=== PATIENT | female | born 1950 | race Caucasian/White ===

== ENCOUNTER 2020-08-26 22:58 | Inpatient (IN) | payer MEDICARE, OTHER ==
[~2020-08-26] VITALS: Ht 162.6 cm; Wt 85.1 kg
[2020-08-26] MEDS ORDERED: METOPROLOL SUC200 MG PO (23:23)
[2020-08-26] MEDS ORDERED: ATORVASTATIN CA20 MG PO (23:23)
[2020-08-26] MEDS ORDERED: HYDROCHLOROTHIA25 MG PO (23:23)
[2020-08-26] MEDS ORDERED: METFORMIN HCL1000 MG PO (23:23)
[2020-08-26] MEDS ORDERED: LISINOPRIL40 MG PO (23:23)
[2020-08-26] MEDS ORDERED: ASPIRIN81 MG PO (23:24)
[2020-08-29] MEDS ORDERED: IPRAT-ALBUT 0.5-3 ML INH (14:15)
[2020-08-29] MEDS ORDERED: DOXYCYCLINE HY100 MG PO (14:15)
[2020-08-29] MEDS ORDERED: PREDNISONE20 MG PO (14:16)
[2020-08-29] MEDS ORDERED: SPIRIVA18 MCG INH (14:18)
[2020-08-29] MEDS ORDERED: FUROSEMIDE20 MG PO (14:38)
[2020-08-29] MEDS ORDERED: GLIPIZIDE ER2.5 MG PO (14:41)
--- NOTE | 2020-08-29 19:01 | EKG ---
[facility] [address] [facility] [place] [address] Signed Sinus rhythm with premature supraventricular complexes Left bundle branch block Abnormal ECG No previous ECGs available Confirmed by LILLIAN BATRES DO ([id number]) on 08/29/2020 7:01:22 PM Electronically Signed By: LILLIAN BATRES DO 08/29/201900 PATIENT NAME: RAMILA ROUSE ZAHIDA Electrocardiogram DATE OF : 48 PHYSICIAN: LILLIAN BATRES DO REPORT #: [id number] REPORT IS CONFIDENTIAL AND NOT TO BE RELEASED WITHOUT AUTHORIZATION
== END 2020-08-29 16:48 | disposition home or self-care (01) | DRG 291 ==
LOC: ED 22:58 → CCU 08-27 00:28 → MS 08-28 11:20
PROVIDERS: ADMIT Internal Medicine; ATTEND Internal Medicine
PROC: 5A09357 Assistance with Respiratory Ventilation, Less than 24 Consecutive Hours, Continuous Positive Airway Pressure (ICD-10-PCS; principal; 2020-08-27)
DX: I11.0 Hypertensive heart disease with heart failure (principal); J96.01 Acute respiratory failure with hypoxia; J96.02 Acute respiratory failure with hypercapnia; J44.1 Chronic obstructive pulmonary disease with (acute) exacerbation; I50.33 Acute on chronic diastolic (congestive) heart failure; Z20.822 Contact with and (suspected) exposure to COVID-19; E11.65 Type 2 diabetes mellitus with hyperglycemia; E78.5 Hyperlipidemia, unspecified; F17.210 Nicotine dependence, cigarettes, uncomplicated; I25.10 Atherosclerotic heart disease of native coronary artery without angina pectoris; I25.2 Old myocardial infarction; Z79.899 Other long term (current) drug therapy; Z79.84 Long term (current) use of oral hypoglycemic drugs; Z79.82 Long term (current) use of aspirin
CPT/HCPCS: 36415; 36600; 51702; 71045; 80048; 80053; 80061; 81001; 82803; 83036; 83735; 83880; 84484; 85025; 87088; 93005; 93010; 93306; 94640; 94660; 94667; 99285-25; J1650; J1815; J1940; J2930; U0003